=== PATIENT | male | born 1950 | race Caucasian/White ===

== ENCOUNTER 2024-03-09 11:46 | Emergency (ER) | payer MEDICARE, SELFPAY ==
[2024-03-09 11:50] VITALS: BP 154/75
[2024-03-09 13:04] VITALS: BP 125/85
[2024-03-09 13:07] LABS: % Basophils 0.9 % (0-2); % Eosinophils 1.3 % (0-6); % Immature Granulocytes 0.3 % (0-0.5); % Lymphocytes 24.4 % (20.5-51.1); % Monocytes 8.3 % (1.7-9.3); % Neutrophils 64.8 % (42.2-75.2); Absolute Basophils 0.1 10^3/uL (0-0.2); Absolute Eosinophils 0.1 10^3/uL (0-0.7); Absolute Lymphocytes 1.9 10^3/uL (1.2-3.4); Absolute Monocytes 0.7 10^3/uL (0.1-0.6); Absolute Neutrophils 5.1 10^3/uL (1.4-6.5); Hematocrit 43.2 % (39.0-52.0); Hemoglobin 14.2 g/dL (13.0-18.0); Mean Corp Hgb Conc. 32.9 g/dL (33.0-37.0); Mean Corpuscular Hgb 28.7 pg (27.0-31.0); Mean Corpuscular Volume 87.3 fL (80.0-94.0); Mean Platelet Volume 10.5 fL (7.4-10.4); Nucleated Red Blood Cells % 0 % (-); Platelet Count 198 10^3/uL (130-400); Red Blood Cell Count 4.95 10^6/uL (4.70-6.10); Red Cell Dist. Width 13.1 % (11.5-14.5); White Blood Cell Count 7.8 10^3/uL (4.8-10.8)
--- NOTE | 2024-03-09 13:08 | ED.GENMED ---
History of Present Illness
<Angelica Garcia MD, Resident - Last Filed: 03/09/24 14:25>
General
Chief Complaint: Chest Pain
Source: patient
Exam Limitations: none
Time Seen by Provider: 03/09/24 12:33
Nursing documentation reviewed up to this point in time: agreed with
History of Present Illness
History of Present Illness:
73yo M with PMH HTN, HLD who presents from home to ED for chest pain. He says the pain started at his left chest around 1030AM and was initially 7/10 on the pain scale at home. The pain was migratory to right side and back-- he now reports pain in
left upper back 3/10 on pain scale. He also reports diaphoresis, belching, abdominal pain and bloating. He is otherwise in usual state of health.
Past History
<Angelica Garcia MD, Resident - Last Filed: 03/09/24 14:25>
Past History
ED Past Medical History: HTN and Hypercholesterolemia
ED Past Surgical History: Appendectomy, Orthopedic (hand) and Tonsilectomy
Patient has exhibited threatening behavior?: No
Social History
Tobacco: Non-smoker
Alcohol: Occasional
Drug: None
Personal:
Living: with family
Review of Systems
<Angelica Garcia MD, Resident - Last Filed: 03/09/24 14:25>
Review of Systems
Allergies reviewed?: Yes
Constitutional: Reports no symptoms; Denies fever, fatigue or chills
EENT: Reports no symptoms
Respiratory: Reports no symptoms; Denies cough, hemoptysis or trouble breathing
Cardiac: Reports chest pain (see HPI) and diaphoresis (see HPI); Denies palpitations or syncope
ABD/GI: Reports abdominal pain and other (bloating); Denies nausea, vomiting, diarrhea, constipated, bloody stools or black stools
: Reports no symptoms
Musculoskeletal: Reports no symptoms
Skin: Reports no symptoms
Neurological: Reports no symptoms; Denies dizzy, weakness or numbness
Endocrine: Reports no symptoms
Hematologic/Lymphatic: Reports no symptoms
Psychiatric: Reports no symptoms
Phy Exam
<Angelica Garcia MD, Resident - Last Filed: 03/09/24 14:25>
General Physical Exam
General Presentation: well appearing and no apparent distress
General age: appears stated age
General Skin: warm and dry (no diaphoresis)
General Habitus: normal, elderly and obese
General Mental: alert
General Hydration: appears well hydrated
Cardiovascular Exam
Cardiovascular Exam: regular rate/rhythm, no edema, no JVD and no murmur
Pulmonary Exam
Pulmonary Exam: lungs clear, no respiratory distress, chest non tender, no crackles, no stridor, no wheezing and no cough
Oxygen Status: room air
Cough: no cough
Respirations: other (nonlabored breathing)
Gastrointestinal Exam
Gastrointestinal Exam: normal bowel sounds, non tender, soft and distended
Neurological Exam
Neurological Exam: alert and oriented x3
Musculoskeletal Exam
Musculoskeletal Exam: no edema and back tenderness (left scapular tenderness; no midline spinal tenderness)
Skin Exam
Skin Exam: normal color, warm/dry, no rash and other (no signs of trauma to chest or back, no ecchymosis/laceration/hematoma)
Psychiatric Exam
Psychiatric Exam: normal mood/affect
Scores
<Ayanna Cordero, DO - Last Filed: 03/09/24 14:43>
Heart Score for Chest Pain Patients
STEMI patient?: No
History: Slightly or Non-Suspicious
ECG: Normal
Age: >/= 65 years
Risk Factors: 1 or 2 Risk Factors
Troponin: </= Normal Limit
Heart Score for Chest Pain Patients: 3
Heart Score Risk: 2.5% MACE over next 6 weeks
Course
<Angelica Garcia MD, Resident - Last Filed: 03/09/24 14:25>
Orders/Labs/Results
Orders:
Orders
03/09/24 11:46
Electrocardiogram (*1) Urgent
Reason for Study: Chest Pain
EKG- Treatment ONCE
03/09/24 12:49
Complete Blood Count/With Diff Urgent
Comprehensive Metabolic Panel Urgent
Troponin I Urgent
03/09/24 13:15
CR Chest - 2 Views Urgent
Comment:
Reason For Exam: chest pain
03/09/24 15:51
Troponin I Urgent
Abnormal Lab Results
03/09/24
12:49
MCHC 32.9 L g/dL
(33.0-37.0)
MPV 10.5 H fL
(7.4-10.4)
Absolute Monos (auto) 0.7 H 10^3/uL
(0.1-0.6)
03/09/24 12:49
03/09/24 12:49
Vital Signs
Initial and Last Documented VS:
Initial Vital Signs
Temp Pulse Resp BP Pulse Ox
98.2 F 57 16 154/75 98
03/09/24 11:50 03/09/24 11:50 03/09/24 11:50 03/09/24 11:50 03/09/24 11:50
Last Documented Vital Signs
Temp Pulse Resp BP Pulse Ox
98.2 F 58 16 125/85 99
03/09/24 11:50 03/09/24 13:04 03/09/24 14:00 03/09/24 13:04 03/09/24 13:04
<Ayanna Cordero DO - Last Filed: 03/09/24 14:43>
Orders/Labs/Results
Orders:
Orders
03/09/24 11:46
Electrocardiogram (*1) Urgent
Reason for Study: Chest Pain
EKG- Treatment ONCE
03/09/24 12:49
Complete Blood Count/With Diff Urgent
Comprehensive Metabolic Panel Urgent
Troponin I Urgent
03/09/24 13:15
CR Chest - 2 Views Urgent
Comment:
Reason For Exam: chest pain
03/09/24 15:51
Troponin I Urgent
Abnormal Lab Results
03/09/24
12:49
MCHC 32.9 L g/dL
(33.0-37.0)
MPV 10.5 H fL
(7.4-10.4)
Absolute Monos (auto) 0.7 H 10^3/uL
(0.1-0.6)
03/09/24 12:49
03/09/24 12:49
Vital Signs
Initial and Last Documented VS:
Initial Vital Signs
Temp Pulse Resp BP Pulse Ox
98.2 F 57 16 154/75 98
03/09/24 11:50 03/09/24 11:50 03/09/24 11:50 03/09/24 11:50 03/09/24 11:50
Last Documented Vital Signs
Temp Pulse Resp BP Pulse Ox
98.2 F 58 16 125/85 99
03/09/24 11:50 03/09/24 13:04 03/09/24 14:00 03/09/24 13:04 03/09/24 13:04
<Angelica Garcia MD, Resident - Last Filed: 03/09/24 14:25>
MDM/Problems Addressed
Differential Diagnosis Includes:
Muscle spasm or strain, ACS, PE, aortic dissection
MDM/Problems Addressed:
73yo M with PMH HTN, HLD presenting for chest pain
Suspect muscle spasm given migratory nature and tenderness on physical exam
ACS also possibility, especially with how pain initially presented and diaphoresis. EKG reassuring with NSR
Less likely PE given no risk factors, low risk wells criteria
Considered aortic dissection though less likely given nature of pain and improvement without intervention
Will check troponin, CBC, BMP, chest xray
Do not suspect abdominal bloating/discomfort is related to presenting complaint of chest/back pain, not suspicious for acute abdominal/GI issue-- reassess prn.
Chronic conditions affecting care: HTN
<Angelica Garcia MD, Resident - Last Filed: 03/09/24 14:25>
*Critical Care Note
Total Time (30-74mins, 75-104mins- exclusive of procedures): Not Applicable
<Ayanna Cordero DO - Last Filed: 03/09/24 14:43>
*EKG
Interpreted by ED Provider?: Yes
EKG Intrepretation Date: 03/09/24
EKG Intrepretation Time: 14:36
Interpretation: normal
Comparison EKG: no comparison EKG present
Heart Rate: 60
Rate: normal
Rhythm: sinus
[place]: normal axis
Interval: normal interval
QRS Pattern: normal QRS
Ischemia: no ischemia
<Angelica Garcia MD, Resident - Last Filed: 03/09/24 14:25>
Update Note
Update Note:
Troponin negative. Chest xray with no acute cardiopulm pathologies, no mediastinal widening. CBC and BMP unremarkable. Will repeat troponin in 3 hours and reassess at that time.
ED Attending Note
<Angelica Garcia MD, Resident - Last Filed: 03/09/24 14:25>
-
Portions of this chart may have been created with voice recognition software.� Occasional wrong word or��sound alike� substitutions may have occurred due to the inherent limitations of voice recognition software.
<Ayanna Cordero DO - Last Filed: 03/09/24 14:43>
ED Attending Note
Patient seen and examined by attending physician: Yes
I performed the substantive portion of visit, reviewed & personally made and approve the management plan that is documented in note by myself or GERRI.: Yes
I performed a history and physical exam of patient and discussed management with resident, I reviewed resident's note and agree with documented findings and plan of care.: Yes
ED Attending Note:
73-year-old male with history of hypertension and hyperlipidemia presenting to the emergency department for chest pain. Patient reports symptoms started this morning while he was sitting at his desk. Pain started in the right side of his back and
has since migrated to his left chest. Does note associated belching and feeling of gas. Denies any known history of cardiac disease. Pain has improved since arrival to the hospital. Denies any difficulty breathing. Denies any fever or cough.
Does note that he had a stress test in 2019, reportedly normal. Pain has been intermittent.
Vital signs on arrival are significant for mild hypertension, which resolved without intervention. EKG obtained on patient's arrival, no STEMI, no acute ischemic abnormality. Unremarkable cardiac and pulmonary exam. Mild reproducible tenderness
to the left chest and right upper shoulder, possible musculoskeletal component versus gastric component given report belching and gas. However, patient does have some cardiac risk factors including hypertension and hyperlipidemia, so will obtain
laboratory analysis including troponin. Will also obtain chest x-ray imaging and continue to closely monitor.
14:20 - Chest x-ray within normal limits. Initial troponin is undetectable. Given intermittent nature of pain, plan for 2 troponin. Patient otherwise low risk by heart score with ultimate plan for outpatient cardiology follow-up for potential
stress testing for further risk stratification
Discharge Plan
Departure
Patient with high blood pressure during this ER visit?: Yes
Condition: Good
Discharge Problem:
Chest wall pain
Instructions: Chest pain - Discharge instructions
Prescriptions:
No Action
atenolol 25 mg Tablet
25 mg PO DAILY
niacin 500 mg Tablet
2,000 mg PO HS
rosuvastatin 10 mg Tablet
10 mg PO HS
cefdinir 300 mg capsule
300 mg PO BID Qty: 10 0RF
azithromycin 500 mg tablet
500 mg PO DAILY 5 Days Qty: 5 0RF
guaifenesin [Mucus Relief ER] 600 mg Tablet Extended Release 12hr
1,200 mg PO Q12 Qty: 14 0RF
benzonatate 100 mg Capsule
100 mg PO TIDPRN PRN (Reason: cough) Qty: 10 0RF
acetaminophen 325 mg Tablet
650 mg PO Q6HPRN PRN (Reason: mild pain/ fever>100.5F) Qty: 30 0RF
Referrals:
PRIVATE,PHYSICIAN [Family Provider] -
Zander Loyd MD [Active] -
Activity Restrictions/Additional Instructions:
You were seen in the emergency department for chest pain
You were found to have a normal EKG with normal laboratory analysis and chest x-ray imaging. Please follow-up with a outdoor studies director.
Please follow-up closely with your primary care physician.
Return to the emergency department for any worsening of your symptoms, or any development of chest pain, difficulty breathing, abdominal pain with persistent vomiting and inability to tolerate food or liquid by mouth (concern for dehydration),
weakness, headache or confusion, fever greater than 100.4, or any additional symptoms that are concerning to you.
Thank you for choosing [facility].
Interventions
Interventions:
*Risk Screen - Suicide Last Done: 03/09/24 11:50
*General Assessment Last Done: 03/09/24 11:50
*Neglect/Abuse Screening Last Done: 03/09/24 11:50
*ED COVID-19 Vaccine History Last Done: 03/09/24 12:12
ED- Cardiac Assessment Last Done: 03/09/24 12:12
Discharge Date and Time
Print Language: BENGALI
[2024-03-09 13:22] LABS: ALT (SGPT) 33 U/L (0-50); AST (SGOT) 35 U/L (17-59); Albumin 4.8 g/dl (3.5-5.0); Alkaline Phosphatase 44 U/L (38-126); Blood Urea Nitrogen 18 mg/dl (9-20); Calcium 9.6 mg/dl (8.4-10.2); Carbon Dioxide 28 mmol/L (22-30); Chloride 104 mmol/L (98-107); Glucose 91 mg/dl (70-99); Potassium 4.3 mmol/L (3.5-5.1); Sodium 143 mmol/L (135-145); Total Bilirubin 0.8 mg/dl (0.2-1.3); Total Protein 7.7 g/dl (6.3-8.2); eGFR > 60.00
[2024-03-09 13:33] LABS: Troponin I < 0.012 ng/ml
[2024-03-09 15:28] VITALS: BP 125/76
[2024-03-09 16:00] VITALS: BP 123/70
[2024-03-09 16:16] LABS: Troponin I < 0.012 ng/ml
== END 2024-03-09 17:14 | disposition home or self-care (01) ==
LOC: EMR 11:46
PROVIDERS: Student in an Organized Health Care Education/Training Program; EMERGENCY PHYSICIAN Student in an Organized Health Care Education/Training Program; REFERRING PHYSICIAN Internal Medicine
DX: R07.89 Other chest pain (principal); I10 Essential (primary) hypertension; E78.00 Pure hypercholesterolemia, unspecified
CPT/HCPCS: 99285; 71046; 80053; 84484; 85025; 93005